=== PATIENT | male | born 1935 | race Two or more races ===

== ENCOUNTER 2021-03-23 14:44 | Inpatient (IN) | payer OTHER ==
[~2021-03-23] VITALS: Ht 172.7 cm; Wt 90.7 kg
[2021-03-23] MEDS ORDERED: CHILDREN'S ASPI81 MG PO (14:50)
[2021-03-23] MEDS ORDERED: LEVOTHYROXINE25 MCG PO (14:50)
[2021-03-23] MEDS ORDERED: TAMS0.4C PO (14:51)
[2021-03-23] MEDS ORDERED: FUROSEMIDE10 MG/1 M2 PO (14:51)
== END 2021-03-30 16:41 | disposition home or self-care (01) | DRG 690 ==
LOC: ER 14:44 → MEDI 20:14 → MEDJ 20:14 → MEDI 03-24 11:49
PROVIDERS: ADMIT Internal Medicine; ATTEND Internal Medicine
DX: N39.0 Urinary tract infection, site not specified (principal); G30.8 Other Alzheimer's disease; F02.80 Dementia in other diseases classified elsewhere, unspecified severity, without behavioral disturbance, psychotic disturbance, mood disturbance, and anxiety; E03.8 Other specified hypothyroidism; E11.9 Type 2 diabetes mellitus without complications; Z79.4 Long term (current) use of insulin; N40.0 Benign prostatic hyperplasia without lower urinary tract symptoms; Z20.822 Contact with and (suspected) exposure to COVID-19; I10 Essential (primary) hypertension; R50.9 Fever, unspecified

== ENCOUNTER 2022-08-22 11:31 | Inpatient (IN) | payer OTHER ==
[~2022-08-22] VITALS: Ht 152.4 cm; Wt 99.8 kg
[~2022-08-22 11:31] MED LIST: CHILDREN'S ASPI81 MG PO; FUROSEMIDE10 MG/1 M2 PO; LEVOTHYROXINE25 MCG PO; TAMS0.4C PO
[2022-08-22] MEDS ORDERED: ZOLOFT25 MG (11:47)
== END 2022-09-07 19:42 | disposition home or self-care (01) | DRG 872 ==
LOC: ER 11:31 → ICU-2 21:47 → MEDI 21:47
PROVIDERS: ADMIT Internal Medicine; ATTEND Internal Medicine
PROC: BW21ZZZ Computerized Tomography (CT Scan) of Abdomen and Pelvis (ICD-10-PCS; 2022-08-22)
PROC: 4A12X4Z Monitoring of Cardiac Electrical Activity, External Approach (ICD-10-PCS; 2022-08-25)
PROC: CF241ZZ Tomographic (Tomo) Nuclear Medicine Imaging of Gallbladder using Technetium 99m (Tc-99m) (ICD-10-PCS; 2022-08-28)
PROC: 02HV33Z Insertion of Infusion Device into Superior Vena Cava, Percutaneous Approach (ICD-10-PCS; 2022-08-30)
PROC: 0F9430Z Drainage of Gallbladder with Drainage Device, Percutaneous Approach (ICD-10-PCS; principal; 2022-09-03)
DX: A41.9 Sepsis, unspecified organism (principal); K81.0 Acute cholecystitis; N17.9 Acute kidney failure, unspecified; N39.0 Urinary tract infection, site not specified; I10 Essential (primary) hypertension; E11.9 Type 2 diabetes mellitus without complications; N40.0 Benign prostatic hyperplasia without lower urinary tract symptoms; K21.9 Gastro-esophageal reflux disease without esophagitis; G30.9 Alzheimer's disease, unspecified; F02.80 Dementia in other diseases classified elsewhere, unspecified severity, without behavioral disturbance, psychotic disturbance, mood disturbance, and anxiety; E03.9 Hypothyroidism, unspecified; E78.5 Hyperlipidemia, unspecified; E86.9 Volume depletion, unspecified; Z74.01 Bed confinement status; Z79.84 Long term (current) use of oral hypoglycemic drugs

== ENCOUNTER 2022-09-08 10:23 | Inpatient (IN) | payer OTHER ==
[~2022-09-08] VITALS: Ht 175.3 cm; Wt 97.1 kg
[~2022-09-08 10:23] MED LIST changes: +ZOLOFT25 MG
--- NOTE | 2022-09-08 10:43 | NUR ---
SE RECIBE PTE DESORIENTADO EN AM,BULABNCIA ACOMPANADO DE CUIDADORA LA CUAL REFIERE TRAER A PTE POR DIFICULTAD RESPIRATORIA Y VOMITOS OSCUROS. SE MIDEN S/V A PTE, PTE SATURANDO 89% CON CN A 3LTS COLOCADA. SE COLOCA PTE EN SULLY DE K8 SE CONECTA A MONITOR CARDIACO CON OXIMETRIA CONTINUA.
--- NOTE | 2022-09-08 11:27 | NUR ---
SE EDUCA A [place] SOBRE [place] MEDICO. SE BERNARDO MUESTRAS DE LABORATORIO UTILIZANDO MEDIDAS ASEPTICAS. SE COLOCA H/L A PTE Y SE REALIZA EKG.
[2022-09-18] MEDS ORDERED: SYNTHROID100 MCG PO (16:47)
[2022-09-18] MEDS ORDERED: NIFEDIPINE ER30 MG PO (16:48)
[2022-09-18] MEDS ORDERED: PANTOPRAZOLE SO40 M2 PO (16:49)
== END 2022-09-18 22:12 | disposition home or self-care (01) | DRG 177 ==
LOC: ER 10:23 → MEDI 21:29
PROVIDERS: ADMIT Internal Medicine; ATTEND Internal Medicine
PROC: 0D9670Z Drainage of Stomach with Drainage Device, Via Natural or Artificial Opening (ICD-10-PCS; principal; 2022-09-08)
PROC: BW251ZZ Computerized Tomography (CT Scan) of Chest, Abdomen and Pelvis using Low Osmolar Contrast (ICD-10-PCS; 2022-09-08)
PROC: 02HV33Z Insertion of Infusion Device into Superior Vena Cava, Percutaneous Approach (ICD-10-PCS; 2022-09-09)
PROC: 30243N1 Transfusion of Nonautologous Red Blood Cells into Central Vein, Percutaneous Approach (ICD-10-PCS; 2022-09-10)
DX: J69.0 Pneumonitis due to inhalation of food and vomit (principal); A41.9 Sepsis, unspecified organism; B37.1 Pulmonary candidiasis; J90 Pleural effusion, not elsewhere classified; J98.11 Atelectasis; K92.0 Hematemesis; N17.9 Acute kidney failure, unspecified; D50.0 Iron deficiency anemia secondary to blood loss (chronic); G30.9 Alzheimer's disease, unspecified; F02.80 Dementia in other diseases classified elsewhere, unspecified severity, without behavioral disturbance, psychotic disturbance, mood disturbance, and anxiety; I13.10 Hypertensive heart and chronic kidney disease without heart failure, with stage 1 through stage 4 chronic kidney disease, or unspecified chronic kidney disease; N18.9 Chronic kidney disease, unspecified; N40.0 Benign prostatic hyperplasia without lower urinary tract symptoms; E11.9 Type 2 diabetes mellitus without complications; K21.9 Gastro-esophageal reflux disease without esophagitis; Z66 Do not resuscitate

== ENCOUNTER 2022-09-19 18:17 | Inpatient (IN) | payer OTHER ==
[~2022-09-19] VITALS: Ht 170.2 cm; Wt 81.6 kg
[~2022-09-19 18:17] MED LIST changes: +NIFEDIPINE ER30 MG PO; +PANTOPRAZOLE SO40 M2 PO; +SYNTHROID100 MCG PO
== END 2022-11-01 21:57 | disposition home or self-care (01) | DRG 853 ==
LOC: ER 18:17 → ICU-2 21:06 → MEDI 09-21 17:13 → MEDJ 10-06 15:14
PROVIDERS: ADMIT Internal Medicine; ATTEND Internal Medicine
PROC: 5A0945A Assistance with Respiratory Ventilation, 24-96 Consecutive Hours, High Flow/Velocity Cannula (ICD-10-PCS; 2022-09-19)
PROC: 4A12X45 Monitoring of Cardiac Electrical Activity, Ambulatory, External Approach (ICD-10-PCS; 2022-09-19)
PROC: 02HV33Z Insertion of Infusion Device into Superior Vena Cava, Percutaneous Approach (ICD-10-PCS; 2022-09-22)
PROC: 3E0F7SF Introduction of Other Gas into Respiratory Tract, Via Natural or Artificial Opening (ICD-10-PCS; 2022-09-23)
PROC: 0DB68ZX Excision of Stomach, Via Natural or Artificial Opening Endoscopic, Diagnostic (ICD-10-PCS; 2022-09-27)
PROC: 30243N1 Transfusion of Nonautologous Red Blood Cells into Central Vein, Percutaneous Approach (ICD-10-PCS; 2022-10-05)
PROC: 8E0ZXY6 Isolation (ICD-10-PCS; 2022-10-06)
PROC: 0JB70ZZ Excision of Back Subcutaneous Tissue and Fascia, Open Approach (ICD-10-PCS; principal; 2022-10-10)
PROC: 0T9B30Z Drainage of Bladder with Drainage Device, Percutaneous Approach (ICD-10-PCS; 2022-10-11)
PROC: 0JD70ZZ Extraction of Back Subcutaneous Tissue and Fascia, Open Approach (ICD-10-PCS; 2022-10-17)
PROC: 2W15X6Z Compression of Back using Pressure Dressing (ICD-10-PCS; 2022-10-17)
PROC: 0JD70ZZ Extraction of Back Subcutaneous Tissue and Fascia, Open Approach (ICD-10-PCS; 2022-10-24)
DX: A41.9 Sepsis, unspecified organism (principal); J69.0 Pneumonitis due to inhalation of food and vomit; L89.154 Pressure ulcer of sacral region, stage 4; L89.153 Pressure ulcer of sacral region, stage 3; K25.0 Acute gastric ulcer with hemorrhage; N99.511 Cystostomy infection; N39.0 Urinary tract infection, site not specified; Z16.12 Extended spectrum beta lactamase (ESBL) resistance; I50.32 Chronic diastolic (congestive) heart failure; D62 Acute posthemorrhagic anemia; E11.52 Type 2 diabetes mellitus with diabetic peripheral angiopathy with gangrene; I96 Gangrene, not elsewhere classified; K92.0 Hematemesis; F02.C18 Dementia in other diseases classified elsewhere, severe, with other behavioral disturbance; B96.5 Pseudomonas (aeruginosa) (mallei) (pseudomallei) as the cause of diseases classified elsewhere; D63.8 Anemia in other chronic diseases classified elsewhere; I35.0 Nonrheumatic aortic (valve) stenosis; I11.0 Hypertensive heart disease with heart failure; N40.0 Benign prostatic hyperplasia without lower urinary tract symptoms; G30.9 Alzheimer's disease, unspecified; Z74.01 Bed confinement status